=== PATIENT | female | born 1950 ===

== ENCOUNTER → 2024-09-20 09:17 | Outpatient (REF) | payer MEDICARE, SELFPAY | LOC: RAD 09:17 | PROVIDERS: ATTENDING PHYSICIAN Nurse Practitioner Family | DX: I70.0 Atherosclerosis of aorta (principal) | CPT/HCPCS: 76770 ==

== ENCOUNTER → 2024-11-06 11:06 | Outpatient (REF) | payer MEDICARE, SELFPAY | LOC: RCS 11:06 | PROVIDERS: ATTENDING PHYSICIAN Nuclear Medicine Nuclear Cardiology; FAMILY PHYSICIAN Nurse Practitioner Family | DX: R01.1 Cardiac murmur, unspecified (principal) | CPT/HCPCS: 93306 ==

== ENCOUNTER → 2025-02-13 09:58 | Outpatient (REF) | payer MEDICARE, SELFPAY | LOC: HWRAD 09:58 | PROVIDERS: ATTENDING PHYSICIAN Nurse Practitioner Family | DX: R11.0 Nausea (principal); K21.9 Gastro-esophageal reflux disease without esophagitis; A08.4 Viral intestinal infection, unspecified | CPT/HCPCS: 76700 ==